=== PATIENT | female | born 1980 | race Hispanic/Latino ===

== ENCOUNTER 2021-06-14 08:00 | Inpatient (IN) | payer OTHER ==
[~2021-06-14] VITALS: Ht 175.3 cm; Wt 77.7 kg
[2021-06-14 10:31] LABS: BASOPHILS % (AUTO) 1.1 % (0.0-5.0); EOSINOPHILS % (AUTO) 2.5 % (0.0-8.0); LYMPHOCYTES % (AUTO) 25.8 % (21.0-51.0); MEAN CORPUSCULAR HEMOGLOBIN 28.1 pg (27.0-33.0); MEAN CORPUSCULAR HGB CONC 32.1 g/dL (32.0-36.0); MEAN CORPUSCULAR VOLUME 87.5 fL (79-99); MONOCYTES % (AUTO) 8.1 % (3.0-13.0); NEUTROPHILS % (AUTO) 62.5 % (40.0-77.0); PLATELET COUNT (AUTO) 251 K/uL (130-400); WHITE BLOOD COUNT (AUTO) 4.7 K/uL (4.8-10.8)
[2021-06-14] MEDS ORDERED: vitamin d3 PO (11:49)
[2021-06-14] MEDS ORDERED: BUPR75TA8 PO (11:49)
[2021-06-14] MEDS ORDERED: ASPI-1443 PO (11:49)
[2021-06-14] MEDS ORDERED: FERR-82 PO (11:49)
[2021-06-15] VITALS (21 sets, daily range): BP systolic 95–126; BP diastolic 52–73
[2021-06-15] MEDS ORDERED: CALDOLOR 800MG+NS 250ML 250 ML IV PRN (08:00)
[2021-06-15] MEDS ORDERED: CEFAZOLIN SODIUM 1 GM VIAL IVP ONE (08:00)
[2021-06-15] MEDS: CEFAZOLIN SODIUM 2 GM VIAL IV SCH ×2 (09:00→12:14)
[2021-06-15] MEDS: CALDOLOR 800MG+NS 250ML 250 ML IV SCH ×4 (09:00→19:57)
[2021-06-15] MEDS ORDERED: LACTATED RINGERS 1000ML 1,000 ML IV ONE (09:19)
[2021-06-15] MEDS ORDERED: CEFAZOLIN SODIUM 1 GM VIAL ONE (09:19)
[2021-06-15] MEDS ORDERED: BISACODYL 10 MG SUPP.RECT RC PRN (11:30)
[2021-06-15] MEDS ORDERED: DEXTROSE 5 %-0.45 % NACL 1,000 ML IV PRN (11:30)
[2021-06-15] MEDS ORDERED: MEPERIDINE-PF 75 MG/ML SYG IM PRN ×2 (11:30→15:30)
[2021-06-15] MEDS ORDERED: PROMETHAZINE HCL 25 MG/ML 1ML AMPULE IM PRN ×2 (11:30)
[2021-06-15] MEDS ORDERED: ACETAMINOPHEN WITH CODEINE 1 TAB TAB PO PRN ×2 (11:30)
[2021-06-15] MEDS ORDERED: HYDROCODONE/ACETAMINOPHEN 5/325 MG TAB PO PRN (11:30)
[2021-06-15] MEDS ORDERED: ONDANSETRON 4MG INJ IVP PRN (11:30)
[2021-06-15] MEDS ORDERED: MORPHINE PF 100MG/10ML AMP IV ONE (11:59)
[2021-06-15] MEDS ORDERED: MIDAZOLAM HCL 1 MG/ML 2ML VIAL ONE (12:00)
[2021-06-15] MEDS ORDERED: PROPOFOL 10 MG/ML 20ML VIAL IV ONE (12:01)
[2021-06-15] MEDS ORDERED: ROCURONIUM 10MG/1ML SYR 10 MG/ML ML ONE (12:01)
[2021-06-15] MEDS ORDERED: FENTANYL CITRATE PF 50 MCG/1 ML 2ML VIAL ONE (12:01)
[2021-06-15] MEDS ORDERED: EPHEDRINE SULFATE 50 MG/ML AMPULE ONE (12:57)
[2021-06-15] MEDS ORDERED: NEOSTIGMINE 5MG/5ML SYR IV ONE (13:29)
[2021-06-15] MEDS ORDERED: GLYCOPYRROLATE 1 MG/5 ML SYRINGE ONE (13:29)
[2021-06-15] MEDS ORDERED: MEPERIDINE-PF 25 MG/ML SYG ONE (14:23)
[2021-06-15] MEDS: DOCUSATE SODIUM 100 MG CAP PO PRN (21:33)
[2021-06-15] MEDS: SIMETHICONE 80 MG TAB.CHEW PO PRN (21:34)
[2021-06-16 03:07] VITALS: BP 111/59
[2021-06-16] MEDS: CALDOLOR 800MG+NS 250ML 250 ML IV SCH (03:19)
[2021-06-16 06:39] LABS: HEMATOCRIT 34.4 % (36-48); MEAN CORPUSCULAR HEMOGLOBIN 28.3 pg (27.0-33.0); MEAN CORPUSCULAR HGB CONC 32.3 g/dL (32.0-36.0); MEAN CORPUSCULAR VOLUME 87.8 fL (79-99); RED BLOOD CELL COUNT(AUTO) 3.92 MIL/uL (4.00-5.50); RED CELL DISTRIBUTION WIDTH 12.9 % (11.0-15.5); WHITE BLOOD COUNT (AUTO) 6.4 K/uL (4.8-10.8)
[2021-06-16 08:00] VITALS: BP 112/54
[2021-06-16] MEDS: DOCUSATE SODIUM 100 MG CAP PO PRN (08:27)
[2021-06-16] MEDS: SIMETHICONE 80 MG TAB.CHEW PO PRN (08:27)
[2021-06-16] MEDS ORDERED: LIDOCAINE 5% TOPICAL PATCH TP SCH (09:00)
[2021-06-16] MEDS ORDERED: IBUPROFEN 800 MG TAB PO SCH (11:30)
[2021-06-16 11:53] VITALS: BP 110/65
[2021-06-16 16:00] VITALS: BP 116/78
== END 2021-06-16 17:40 | disposition home or self-care (01) | DRG 743 ==
LOC: EDSTATUS 08:00 → DAHIP 06-15 08:35 → WSH 06-15 15:05
PROVIDERS: ADMIT Obstetrics & Gynecology; ATTEND Obstetrics & Gynecology
PROC: 0UT70ZZ Resection of Bilateral Fallopian Tubes, Open Approach (ICD-10-PCS; 2021-06-15)
PROC: 0UT90ZZ Resection of Uterus, Open Approach (ICD-10-PCS; principal; 2021-06-15 12:26)
PROC: 0UTC0ZZ Resection of Cervix, Open Approach (ICD-10-PCS; 2021-06-15 12:26)
DX: N80.0 Endometriosis of uterus (principal); N92.0 Excessive and frequent menstruation with regular cycle; Z20.822 Contact with and (suspected) exposure to COVID-19
CPT/HCPCS: 36415; 84703; 85025; 85027; 86850; 86900; 86901; 87635; G0378; J0690; J1741; J2175; J2250; J2274; J2704; J2710; J3010; J3490; J7120